=== PATIENT | male | born 1995 | race Caucasian/White ===

== ENCOUNTER 2017-07-31 22:36 | Emergency (ER) | payer SELFPAY ==
--- NOTE | 2017-07-31 23:29 | ER Document Report ---
ED General - General Chief Complaint: Psych Problem Stated Complaint: IVC WITH PAPERS Time Seen by Provider: 07/31/17 23:01 Notes: Patient is a 22-year-old male who is brought in on involuntary commitment paperwork by the mobile acetone recovery worker. The story is not clear. I did call the mobile acetone recovery worker, Mr. Hunter and speak with him. He said that the patient apparently was angry and was yelling at the [place] over the phone. He apparently became upset and made threats of suicide towards him. When the mobile acetone recovery worker went to evaluate the patient the patient refused to expand upon exactly what he said. The mobile acetone recovery worker said that every time the patient would ask a question about whether not he was suicidal the patient refused to answer it. Patient himself admits that he refused to answer any of the mobile crisis workers questions in regards to suicidal ideations. Patient says that he does not feel that he should be received even though he refused to deny suicidal ideations to the mobile acetone recovery worker. Patient now says is not suicidal; however, he will not expand upon exactly what he said to the [facility]. Patient will just tell me that he told the [facility] that he did commit suicide 2 months ago. He would not confirm or deny whether or not he said that he was considering doing it this time. Patient does admit to drinking alcohol. He denies any attempt of overdose. Patient does admit that he has a history of psychiatric illness and has a history of severe depression and PTSD. He does take medications for this. - Related Data Allergies/Adverse Reactions: No Known Allergies Allergy (Unverified 07/31/17 23:00) Past Medical History - Social History Smoking Status: Smoker,Current Status Unk Frequency of alcohol use: Occasional Drug Abuse: None Family History: Reviewed & Not Pertinent Patient has suicidal ideation: No Patient has homicidal ideation: No Renal/ Medical History: Denies: Hx Peritoneal Dialysis Review of Systems - Review of Systems Notes: My Normal Review Basic REVIEW OF SYSTEMS: CONSTITUTIONAL : Denies fever, chills, or sweats. Denies recent illness. EENT: Denies eye, ear, throat, or mouth pain or symptoms. Denies nasal or sinus congestion. RESPIRATORY: Denies cough, cold, or chest congestion. Denies shortness of breath, difficulty breathing, or wheezing. GASTROINTESTINAL: Denies abdominal pain. Denies nausea, vomiting, or diarrhea. MUSCULOSKELETAL: Denies neck or back pain or joint pain or swelling. SKIN: Denies rash or skin lesions. NEUROLOGICAL: Denies altered mental status or loss of consciousness. Denies headache. Denies weakness or paralysis or loss of use of either side. Denies problems with gait or speech. Denies sensory or motor loss. PSYCHIATRIC: History of depression and suicide attempt. ALL OTHER SYSTEMS REVIEWED AND NEGATIVE. Physical Exam - Vital signs Vitals: Temp Pulse Resp BP Pulse Ox 98.4 F 112 H 20 147/90 H 97 07/31/17 22:54 07/31/17 22:54 07/31/17 22:54 07/31/17 22:54 07/31/17 22:54 - Notes Notes: General Appearance: Patient is easily agitated and not 100% forthcoming with all the information. He is awake and alert and well-appearing. Sick appearing. Vitals: reviewed, See vital signs table. Eyes: PERRL, EOMI, Conjuctiva clear Lungs: No wheezing, No rales, No rhonci, No accessory muscle use, good air exchange bilaterally. Heart: Normal rate, Regular rythm, No murmur, no rub Abdomen: Normal BS, soft, No rigidity, No abdominal tenderness, No guarding, no rebound, no abdominal masses, no organomegaly Extremities: strength 5/5 in all extremities, good pulses in all extremities, no swelling or tenderness in the extremities, no edema. Skin: warm, dry, appropriate color, no rash Neuro: speech clear, oriented x 3, normal affect, responds appropriately to questions. Patient moves all extremities on his own without difficulty. He has symmetric facial movement. Course - Re-evaluation Re-evalutation: 08/01/17 06:31 Patient requested that we did not draw blood. I informed him that I would at least need to draw an alcohol level to make sure that he is able to be cleared for psychiatric evaluation. I informed the patient that since he is on IVC paperwork that we can obtain these tests regardless but I would like him to cooperate so that this would be smoother needs here. Patient did agree to the blood draw. I did obtain alcohol level but also obtained acetaminophen or fluid levels as well to make sure the patient has no evidence of overdose. These were negative. Patient has been doing well throughout the night. His girlfriend is in the room with him. He has had no further outbursts. As I explained to the patient's difficult for me to clear him site psychiatrically when he will not really elaborate on exactly what happened and also being that he does have a history of recent previous suicide attempts. Patient will be evaluated by psychiatry this morning. Dictation of this chart was performed using voice recognition software; therefore, there may be some unintended grammatical errors. - Vital Signs Vital signs: Temp Pulse Resp BP Pulse Ox 98.4 F 112 H 20 147/90 H 97 07/31/17 22:54 07/31/17 22:54 07/31/17 22:54 07/31/17 22:54 07/31/17 22:54 - Laboratory Laboratory results interpreted by me: 07/31/17 23:35 Salicylates < 1.0 L Acetaminophen < 10 L
[2017-08-01 00:01] LABS: ALCOHOL 240 mg/dL (NONE DETECTED)
[2017-08-01 00:02] LABS: ACETAMINOPHEN < 10 ug/mL (10-30); SALICYLATE < 1.0 mg/dL (2.0-20.0)
[2017-08-01 09:56] LABS: ABSOLUTE BASOPHILS # (AUTO) 0.1 10^3/uL (0.0-0.2); ABSOLUTE LYMPHOCYTES (AUTO) 3.2 10^3/uL (0.5-4.7); ABSOLUTE MONOCYTES (AUTO) 0.7 10^3/uL (0.1-1.4); ABSOLUTE NEUT (AUTO) 4.9 10^3/uL (1.7-8.2); EOSINOPHILS % (AUTO) 0.3 % (0-6); HEMATOCRIT 48.3 % (37.9-51.0); HEMOGLOBIN 16.6 g/dL (13.5-17.0); LYMPHOCYTES % (AUTO) 35.3 % (13-45); MEAN CORPUSCULAR HEMOGLOBIN 31.7 pg (27.0-33.4); MEAN CORPUSCULAR HGB CONC 34.3 g/dL (32.0-36.0); MEAN CORPUSCULAR VOLUME 92 fl (80-97); MONOCYTES % (AUTO) 8.3 % (3-13); PLATELET COUNT 271 10^3/uL (150-450); RED BLOOD COUNT 5.24 10^6/uL (4.35-5.55); SEGMENTED NEUTROPHILS % (AUTO) 55.1 % (42-78); TOTAL CELLS COUNTED % (AUTO) 100 %; WHITE BLOOD COUNT 8.9 10^3/uL (4.0-10.5)
[2017-08-01] MEDS ORDERED: BUPROPION HCL 75 MG TABLET PO SCH (10:00)
[2017-08-01 10:06] LABS: ALANINE AMINOTRANSFERASE 27 U/L (21-72); ALBUMIN 5.8 g/dL (3.5-5.0); ALKALINE PHOSPHATASE 56 U/L (38-126); ASPARTATE AMINO TRANSFERASE 49 U/L (17-59); BILIRUBIN,DIRECT 0.3 mg/dL (0.0-0.4); BILIRUBIN,TOTAL 0.3 mg/dL (0.2-1.3); BLOOD UREA NITROGEN 11 mg/dL (7-20); CALCIUM 10.6 mg/dL (8.4-10.2); CARBON DIOXIDE 27 mmol/L (22-30); CHLORIDE 107 mmol/L (98-107); GLUCOSE 121 mg/dL (75-110); POTASSIUM 4.4 mmol/L (3.6-5.0); TOTAL PROTEIN 9.7 g/dL (6.3-8.2)
--- NOTE | 2017-08-01 10:25 | PSYCHOLOGICAL NOTE ---
Psych Note - Psych Note Psych Note: Reason for Consult: IVC Consent Permissions: Hedy, friend Pt presents on IVC papers for suicidal ideations. Per deputy, mobile crisis is the one who took out the papers. Pt denies any SI or HI. Patient disclosed that he came to [facility] because he "sent an email.... saying things I should have never said..." Patient disclosed that this email was [employer] which resulted in the police coming to his home. Patient continued to state that he was told he had to speak to mobile crisis however felt it was not a choice he could make because he is being "told" by the police to do it. He states that once mobile crisis arrived he changed his mind and did not want to talk to them. Patient admits to drinking last night. He confirms that he did have attempted overdose "a couple months back." He disclosed that he overdosed on his prescription medications however did not need medical assistance. He states "when I woke up I was confused... but life goes on." Patient denies current suicidal ideation. Patient has outpatient provider through the [facility]. He is diagnosed with major depressive disorder and PTSD. Patient currently lives alone however states his friend Shivani is going to be staying with him. Clinician spoke with his friend Hedy who confirms she will be part of the patient's discharge plan i.e. ensuring he follows up with mental health appointments, and has no access to medications or weapons. She confirms she will also be staying with him for the time being until he starts therapeutic services. Patient is alert and orientated to person place time and circumstance. Mood is euthymic with congruent affect. Patient denies current suicidal and homicidal ideation. Patient confirms making suicidal comments last night while intoxicated. Delusions are absent behaviors congruent with intact reality based presentation i.e. organized, linear, rational thinking. Eye contact was fair. Conversational speech was within normal rate, tone and prosody. Intellectual abilities appear to be within the average range. Attention and concentration are good. Insight, judgment, impulse control are fair. 309.81 (F43.10) post manic stress disorder per history provided by patient 296.30 (F33.9) major depressive disorder; recurrent episode, unspecified per history provided by patient Impression\\plan: Patient is recommended for rescind of IVC and is considered psychiatrically clear. Patient no longer meets IVC criteria per [place] GS 122C. Patient made suicidal comments while intoxicated to [facility] in an email. Patient does admit to prior suicide attempt that did not require medical assistance. Patient does have an outpatient mental health provider through the [facility]; patient has an appointment in 2 days. Patient's friend Hedy agrees to be part of patient's discharge plan to ensure patient does not have access to medications or weapons and follow through with his mental health treatment. Dr. Ivey was consulted and the care and management of this patient; attending physician is in agreement with augmentations and disposition.
--- NOTE | 2017-08-01 10:39 | ER Document Report ---
Doctor's Note Notes: 08/01/17 10:38 Rounds: Chart reviewed and patient interviewed. Vital signs are all normal. Labs were normal with the exception of sodium of 154 and a blood alcohol of 240. Patient is awake and alert and cooperative this morning. Does not have any suicidal feelings at this time. Patient appears to be medically stable for transfer or discharge. Es Medellin MD
[2017-08-01 10:46] VITALS: BP 145/76
[2017-08-01 10:57] LABS: ANION GAP 20 (5-19)
[2017-08-01 11:07] LABS: APPEARANCE,URINE SLIGHTLY-CLOUDY; BILIRUBIN,URINE NEGATIVE (NEGATIVE); COLOR,URINE YELLOW; GLUCOSE, URINE NEGATIVE (NEGATIVE); KETONES,URINE NEGATIVE (NEGATIVE); LEUKOCYTE ESTERASE,URINE TRACE (NEGATIVE); NITRITE,URINE NEGATIVE (NEGATIVE); PROTEIN,URINE 30 mg/dL (NEGATIVE); URINE SPECIFIC GRAVITY 1.027; UROBILINOGEN,URINE NEGATIVE mg/dL (<2.0)
[2017-08-01 11:20] LABS: URINE AMPHETAMINES SCREEN NEGATIVE; URINE BARBITURATES SCREEN NEGATIVE; URINE BENZODIAZEPINES SCREEN NEGATIVE; URINE COCAINE SCREEN NEGATIVE; URINE MARIJUANA (THC) SCREEN NEGATIVE; URINE METHADONE SCREEN NEGATIVE; URINE PHENCYCLIDINE SCREEN NEGATIVE
== END 2017-08-01 11:21 | disposition home or self-care (01) ==
LOC: ER 22:36
DX: F10.10 Alcohol abuse, uncomplicated (principal); F43.10 Post-traumatic stress disorder, unspecified; F17.200 Nicotine dependence, unspecified, uncomplicated; F33.9 Major depressive disorder, recurrent, unspecified
CPT/HCPCS: 36415; 80053; 80307; 81001; 85025; 99285